=== PATIENT | female | born 1995 | race Hispanic/Latino ===

== ENCOUNTER 2020-08-14 14:44 | Emergency (ER) | payer OTHER ==
[~2020-08-14 14:44] MED LIST: LEVO500T2 PO; OMEP20CA12 PO
[2020-08-14 15:08] LABS: APPEARANCE,URINE Clear (CLEAR); BILIRUBIN,URINE Negative (NEGATIVE); COLOR,URINE Yellow (YELLOW); GLUCOSE, URINE (UA) Negative (NEGATIVE); KETONES,URINE Trace mg/dL (NEGATIVE); LEUKOCYTE ESTERASE ,URINE Negative (NEGATIVE); NITRATE,URINE Negative (NEGATIVE); OCCULT BLOOD,URINE Negative (NEGATIVE); PH,URINE 5.5 (5.0-8.0); PROTEIN,URINE Negative (NEGATIVE)
== END 2020-08-14 15:31 | disposition home or self-care (01) ==
LOC: EDH 14:44
DX: N91.2 Amenorrhea, unspecified (principal)
CPT/HCPCS: 81003; 81025

== ENCOUNTER 2021-09-29 20:14 | Emergency (ER) | payer OTHER ==
[~2021-09-29 20:14] MED LIST changes: +D-ME1POW16 PO; +NIRM1TAB PO
[2021-09-30] MEDS ORDERED: CIPR-278 PO (07:22)
[2021-09-30] MEDS ORDERED: PHEN-776 PO (07:22)
[2021-09-30] MEDS ORDERED: ONDA4TAB10 PO (07:22)
[2021-09-30] MEDS ORDERED: DICY20TA2 PO (07:22)
== END 2021-09-29 20:45 | disposition left against medical advice (07) ==
LOC: EDH 20:14
DX: R30.9 Painful micturition, unspecified (principal); Z53.21 Procedure and treatment not carried out due to patient leaving prior to being seen by health care provider

== ENCOUNTER 2021-09-30 05:51 | Emergency (ER) | payer MEDICAID, OTHER ==
[~2021-09-30] VITALS: Ht 165.1 cm; Wt 113.4 kg
[2021-09-30 06:23] LABS: APPEARANCE,URINE TURBID (CLEAR); BILIRUBIN,URINE NEGATIVE (NEGATIVE); COLOR,URINE YELLOW (YELLOW); GLUCOSE, URINE (UA) NEGATIVE (NEGATIVE); KETONES,URINE NEGATIVE (NEGATIVE); LEUKOCYTE ESTERASE ,URINE MODERATE (NEGATIVE); NITRATE,URINE NEGATIVE (NEGATIVE); OCCULT BLOOD,URINE LARGE (NEGATIVE); PROTEIN,URINE 100 mg/dL (NEGATIVE); UROBILINOGEN,URINE 0.2 mg/dL (0.2-1.0)
[2021-09-30 06:59] LABS: HCG,QUAL RESULT NEGATIVE (NEGATIVE)
[2021-09-30 07:11] LABS: BACTERIA,URINE Few /HPF (None Seen); SQUAMOUS EPITHELIAL CELL,UR Rare /HPF (0-2); WBC,URINE TNTC /HPF (0-1)
[2021-09-30] MEDS ORDERED: PHEN-776 PO (07:22)
[2021-09-30] MEDS ORDERED: CIPR-278 PO (07:22)
[2021-09-30] MEDS ORDERED: DICY20TA2 PO (07:22)
[2021-09-30] MEDS ORDERED: ONDA4TAB10 PO (07:22)
[2021-09-30] MEDS ORDERED: DICYCLOMINE HCL 20 MG TAB PO SCH (07:30)
[2021-09-30] MEDS ORDERED: PHENAZOPYRIDINE HCL 200 MG TABLET PO SCH (07:30)
[2021-09-30] MEDS ORDERED: ONDANSETRON ODT 4MG TAB SL SCH (07:30)
[2021-09-30] MEDS ORDERED: LEVOFLOXACIN 500 MG TABLET PO SCH (07:30)
[2021-09-30 07:45] VITALS: BP 116/71
== END 2021-09-30 08:02 | disposition home or self-care (01) ==
LOC: EDH 05:51
DX: N39.0 Urinary tract infection, site not specified (principal); E66.9 Obesity, unspecified; Z68.41 Body mass index [BMI] 40.0-44.9, adult; Z79.899 Other long term (current) drug therapy
CPT/HCPCS: 81001; 81025; 87077; 87088; 87186

== ENCOUNTER 2023-10-27 15:15 | Emergency (ER) | payer BC, OTHER ==
[~2023-10-27] VITALS: Ht 165.1 cm; Wt 123.8 kg
[~2023-10-27 15:15] MED LIST changes: +CIPR-278 PO; +DICY20TA2 PO; +ONDA4TAB10 PO; +PHEN-776 PO
[2023-10-27 16:10] LABS: BASOPHILS # (AUTO) 0.06 K/uL (0.00-0.20); BASOPHILS % (AUTO) 0.5 % (0.0-5.0); EOSINOPHILS # (AUTO) 0.17 K/uL (0.00-0.70); EOSINOPHILS % (AUTO) 1.5 % (0.0-8.0); HEMATOCRIT 36.3 % (36-48); IMMATURE GRANULOCYTE ABSOLUTE 0.03 K/uL (0-1); LYMPHOCYTES # (AUTO) 2.2 K/uL (1.0-4.8); LYMPHOCYTES % (AUTO) 20.2 % (21.0-51.0); MEAN CORPUSCULAR HGB CONC 32.8 g/dL (32.0-36.0); MEAN CORPUSCULAR VOLUME 85.4 fL (79-99); MONOCYTES # (AUTO) 0.6 K/uL (0.1-1.0); MONOCYTES % (AUTO) 5.3 % (3.0-13.0); NEUTROPHILS % (AUTO) 72.2 % (40.0-77.0); PLATELET COUNT (AUTO) 332 K/uL (130-400); RED BLOOD CELL COUNT(AUTO) 4.25 MIL/uL (4.00-5.50); RED CELL DISTRIBUTION WIDTH 13.5 % (11.0-15.5); WHITE BLOOD COUNT (AUTO) 11.1 K/uL (4.8-10.8)
[2023-10-27 16:24] LABS: CREATININE 0.7 mg/dL (0.5-1.0); POTASSIUM 3.5 mmol/L (3.5-5.1)
[2023-10-27 16:28] LABS: ALBUMIN 3.7 g/dL (3.5-5.0); BILIRUBIN,TOTAL 0.3 mg/dL (0.2-1.0); TOTAL PROTEIN, SERUM 8.3 g/dL (6.0-8.3)
[2023-10-27 17:24] LABS: APPEARANCE,URINE TURBID (CLEAR); BILIRUBIN,URINE NEGATIVE (NEGATIVE); COLOR,URINE LIGHT-ORANGE (YELLOW); GLUCOSE, URINE (UA) NEGATIVE (NEGATIVE); KETONES,URINE NEGATIVE (NEGATIVE); LEUKOCYTE ESTERASE ,URINE NEGATIVE Leu/uL (NEGATIVE); NITRATE,URINE NEGATIVE (NEGATIVE); OCCULT BLOOD,URINE LARGE (NEGATIVE); PROTEIN,URINE 30 mg/dL (NEGATIVE); UROBILINOGEN,URINE 6 mg/dL (0.2-1.0)
[2023-10-27 17:29] LABS: ADD UA MICROSCOPIC YES
[2023-10-27 17:33] LABS: BACTERIA,URINE RARE /HPF (None Seen); MUCUS,URINE RARE LPF (None Seen); OTHER CASTS, URINE 12 /LPF (None Seen); RBC,URINE 51-100 /HPF (0-1); UNCLASSIFIED CRYSTAL 4 /HPF (None Seen); WBC,URINE 26-50 /HPF (0-1); YEAST,URINE BUDDING MOD /HPF (None Seen)
[2023-10-27 18:38] VITALS: TEMP 100
[2023-10-27] MEDS: ONDANSETRON 4MG INJ IVP ONE (18:38)
[2023-10-27] MEDS: 0.9%NACL 1000ML 1,000 ML IV ONE (18:38)
[2023-10-27] MEDS: ACETAMINOPHEN 500 MG TABLET PO ONE (18:38)
[2023-10-27] MEDS: KETOROLAC 30MG VIAL (30MG/ML) IVP ONE (18:39)
[2023-10-27] MEDS ORDERED: IOHEXOL 350 MG/ML 100ML INFUS..BTL IV ONE (19:39)
[2023-10-27] MEDS ORDERED: ONDA-104 PO (20:49)
[2023-10-27] MEDS ORDERED: PANT40TA54 PO (20:49)
[2023-10-27] MEDS ORDERED: DICY20TA2 PO (20:49)
[2023-10-27] MEDS ORDERED: NAPR-1023 PO (20:49)
[2023-10-27 21:08] VITALS: BP 132/66; PULSE 90; RESP 20; O2SAT 98
== END 2023-10-27 21:12 | disposition home or self-care (01) ==
LOC: EDH 15:15
DX: N94.6 Dysmenorrhea, unspecified (principal); E66.9 Obesity, unspecified; K29.70 Gastritis, unspecified, without bleeding; Z79.899 Other long term (current) drug therapy; Z98.890 Other specified postprocedural states
CPT/HCPCS: 99285; 74177; 76705; 96374; 96361; 96375; 80053; 84703; 83690; 85025; 86850; 86900; 86901; 87088; 81001; 36415; 76856; J7030; J2405; J1885; Q9967

== ENCOUNTER 2023-12-29 13:07 | Emergency (ER) | payer BC ==
[~2023-12-29] VITALS: Ht 165.1 cm; Wt 120.7 kg
[~2023-12-29 13:07] MED LIST changes: +NAPR-1023 PO; +ONDA-104 PO; +ONDA-243 PO; -ONDA4TAB10 PO; +PANT40TA54 PO
[2023-12-29 13:51] LABS: APPEARANCE,URINE CLOUDY (CLEAR); BILIRUBIN,URINE NEGATIVE (NEGATIVE); COLOR,URINE YELLOW (YELLOW); GLUCOSE, URINE (UA) NEGATIVE (NEGATIVE); KETONES,URINE NEGATIVE (NEGATIVE); LEUKOCYTE ESTERASE ,URINE NEGATIVE Leu/uL (NEGATIVE); NITRATE,URINE NEGATIVE (NEGATIVE); OCCULT BLOOD,URINE LARGE (NEGATIVE); PROTEIN,URINE 30 mg/dL (NEGATIVE); UROBILINOGEN,URINE 0.2 mg/dL (0.2-1.0)
[2023-12-29 13:56] LABS: BASOPHILS # (AUTO) 0.06 K/uL (0.00-0.20); BASOPHILS % (AUTO) 0.8 % (0.0-5.0); EOSINOPHILS # (AUTO) 0.19 K/uL (0.00-0.70); EOSINOPHILS % (AUTO) 2.5 % (0.0-8.0); HEMATOCRIT 35.1 % (36-48); IMMATURE GRANULOCYTE ABSOLUTE 0.01 K/uL (0-1); LYMPHOCYTES # (AUTO) 2.4 K/uL (1.0-4.8); LYMPHOCYTES % (AUTO) 32.1 % (21.0-51.0); MEAN CORPUSCULAR HEMOGLOBIN 27.2 pg (27.0-33.0); MEAN CORPUSCULAR VOLUME 82.4 fL (79-99); MONOCYTES # (AUTO) 0.5 K/uL (0.1-1.0); MONOCYTES % (AUTO) 6.7 % (3.0-13.0); NEUTROPHILS # (AUTO) 4.4 K/uL (1.8-7.7); NEUTROPHILS % (AUTO) 57.8 % (40.0-77.0); PLATELET COUNT (AUTO) 359 K/uL (130-400); RED BLOOD CELL COUNT(AUTO) 4.26 MIL/uL (4.00-5.50); RED CELL DISTRIBUTION WIDTH 14.1 % (11.0-15.5); WHITE BLOOD COUNT (AUTO) 7.6 K/uL (4.8-10.8)
[2023-12-29 14:09] LABS: ALBUMIN 3.6 g/dL (3.5-5.0); BILIRUBIN,TOTAL 0.2 mg/dL (0.2-1.0); CREATININE 0.6 mg/dL (0.5-1.0); POTASSIUM 3.5 mmol/L (3.5-5.1); TOTAL PROTEIN, SERUM 8.2 g/dL (6.0-8.3)
[2023-12-29 14:35] LABS: ADD UA MICROSCOPIC YES
[2023-12-29] MEDS: 0.9%NACL 1000ML 1,000 ML IV ONE (14:35)
[2023-12-29 14:43] LABS: BACTERIA,URINE RARE /HPF (None Seen); MUCUS,URINE FEW LPF (None Seen); RBC,URINE TNTC /HPF (0-1); SQUAMOUS EPITHELIAL CELL,UR FEW /HPF (0-2)
[2023-12-29] MEDS: MEDROXYPROGESTERONE ACET 5 MG TAB PO ONE (16:02)
[2023-12-29] MEDS ORDERED: MEDR10TA PO (16:29)
[2023-12-29] MEDS ORDERED: ONDA-243 PO (16:29)
[2023-12-29] MEDS ORDERED: IBUP-2071 PO (16:29)
[2023-12-29 16:43] VITALS: BP 136/83; PULSE 86; RESP 18; O2SAT 98
== END 2023-12-29 16:51 | disposition home or self-care (01) ==
LOC: EDH 13:07
DX: N93.8 Other specified abnormal uterine and vaginal bleeding (principal); E66.9 Obesity, unspecified; Z79.899 Other long term (current) drug therapy; Z79.2 Long term (current) use of antibiotics; Z87.42 Personal history of other diseases of the female genital tract; Z68.30 Body mass index [BMI] 30.0-30.9, adult
CPT/HCPCS: 99284; 96360; 76856; 80053; 85025; 81001; 81025; 36415; J7030